=== PATIENT | male | born 1985 | race Caucasian/White ===

== ENCOUNTER 2021-01-09 09:42 | Outpatient (REF) | payer OTHER, SELFPAY ==
[2021-01-09 12:29] LABS: Alanine Aminotransferase 50 U/L (0-40); Albumin Level 4.7 g/dL (3.5-5.0); Alkaline Phosphatase 64 U/L (39-117); Anion Gap 11 (12-20); Aspartate Amino Transferase 31 U/L (5-37); Bilirubin Total 0.9 mg/dL (0.0-1.0); Blood Urea Nitrogen 16 mg/dL (9-16); Calcium 9.6 mg/dL (8.4-10.2); Carbon Dioxide 27 mmol/L (22-29); Chloride 104 mmol/L (96-108); Cholesterol 246 mg/dL; Estimated Glomerular Filt Rate > 60; Glucose Fasting 157 mg/dL (60-99); HDL Cholesterol 36 mg/dL; LDL Cholesterol Calculated 179 mg/dl; Potassium 4.2 mmol/L (3.3-5.1); Sodium 138 mmol/L (135-145); Total Protein 7.8 g/dL (6.5-8.0); Triglycerides 155 mg/dL
[2021-01-09 12:31] LABS: Creatinine Urine 186.07 mg/dL; Microalbum/Creatinine Ratio Ur 13.4 ug/mg cr
== END 2021-01-09 09:43 | disposition home or self-care (01) ==
LOC: HO.WFDLDS 09:42
PROVIDERS: Visit Provider Family Medicine
DX: Z00.00 Encounter for general adult medical examination without abnormal findings (principal); I10 Essential (primary) hypertension
CPT/HCPCS: 36415; 80053; 80061; 82043; 84443